=== PATIENT | female | born 1955 ===

== ENCOUNTER → 2024-03-30 08:00 | Outpatient (CLI) | payer OTHER ==
[~2024-03-30] VITALS: Ht 61 cm; Wt 5.0 kg
[~2024-03-30 08:00] MED LIST: DEXILANT30 MG; FUSION PLUS CA1 EACH; GLIPIZIDE XL2.5 MG PO; LIPITOR20 MG PO; LOSARTAN-HCTZ1 EAC1 PO
[2024-03-30 09:25] VITALS: BP 139/82
[2024-03-30 09:55] LABS: HEMATOCRIT 39.3 % (36.0-45.00); HEMOGLOBIN 12.8 g/dL (12.0-15.00); MEAN CELL VOLUME 83.4 fL (80.00-100.00); MEAN CORPUSCULAR HEMOGLOBIN 27.1 pg (27.00-32.0); MEAN CORPUSCULAR HGB CONC 32.5 g/dl (32.0-36.0); PLATELET COUNT 454 K/uL (150-450); RED BLOOD COUNT 4.72 M/uL (4.00-6.00); RED CELL DISTRIBUTION WIDTH 15.5 % (11.5-14.5)
[2024-03-30 10:17] LABS: INR 1.02; PARTIAL THROMBOPLASTIN TIME 30.3 SECONDS (22.0-34.0); PROTHROMBIN TIME 11.1 SECONDS (9.0-11.5)
[2024-03-30 10:22] LABS: PH,URINE 5.5 (5.0-8.0); URINE APPEARANCE Clear; URINE BILIRRUBIN Negative (NEGATIVE); URINE BLOOD Negative; URINE COLOR Yellow; URINE GLUCOSE Negative (NEGATIVE); URINE KETONE Negative (NEGATIVE); URINE LEUKOCYTE Negative; URINE NITRATE Negative; URINE PROTEIN Negative (NEGATIVE); URINE UROBILINOGEN 0.2 E.U./dl
[2024-03-30 10:27] LABS: URINE BACTERIA 2892.8 uL (0.0-1933); URINE EPITHELIAL CELLS 55.4 uL (0.0-38.8); URINE RBC 4.8 uL (0.0-20.8); URINE WBC 6.9 uL (0.0-23.2)
[2024-03-30 10:38] LABS: BILIRUBIN TOTAL 0.51 mg/dL (0.3-1.2); CALCIUM 9.7 mg/dL (8.5-10.1); CREATININE SERUM 0.77 mg/dL (0.55-1.02); GFR 74.55; POTASSIUM 3.87 mEq/L (3.5-5.1)
[2024-03-30 10:45] LABS: URINE CAST 0.61 uL (0.0-1.40)
== END | disposition home or self-care (01) ==
LOC: RAD 08:00 → SURH 04-12 07:00 → EDSTATUS 04-12 08:30 → SURH 04-12 08:30
PROVIDERS: ATTEND Surgery
DX: K44.9 Diaphragmatic hernia without obstruction or gangrene (principal); Z00.00 Encounter for general adult medical examination without abnormal findings

== ENCOUNTER 2024-06-23 08:15 | Inpatient (IN) | payer OTHER ==
[~2024-06-23] VITALS: Ht 160 cm; Wt 64.9 kg
[2024-06-23] MEDS ORDERED: TOPROL XL25 M1 PO (09:33)
[2024-06-23] MEDS ORDERED: METFORMIN HCL500 M3 PO (09:33)
[2024-06-23] MEDS ORDERED: PROTONIX40 MG PO (09:33)
[2024-06-23 09:39] LABS: PH,URINE 5.5 (5.0-8.0); URINE APPEARANCE Clear; URINE BILIRRUBIN Negative (NEGATIVE); URINE BLOOD Negative; URINE COLOR Yellow; URINE GLUCOSE Negative (NEGATIVE); URINE KETONE Negative (NEGATIVE); URINE LEUKOCYTE Negative; URINE NITRATE Negative; URINE PROTEIN Negative (NEGATIVE)
[2024-06-23 09:41] LABS: HEMATOCRIT 35.6 % (36.0-45.00); MEAN CELL VOLUME 80.6 fL (80.00-100.00); MEAN CORPUSCULAR HEMOGLOBIN 27.3 pg (27.00-32.0); MEAN CORPUSCULAR HGB CONC 33.8 g/dl (32.0-36.0); PLATELET COUNT 471 K/uL (150-450); RED BLOOD COUNT 4.41 M/uL (4.00-6.00); RED CELL DISTRIBUTION WIDTH 14.9 % (11.5-14.5)
[2024-06-23 09:50] LABS: URINE BACTERIA 1696.1 uL (0.0-1933); URINE EPITHELIAL CELLS 28.7 uL (0.0-38.8); URINE RBC 3.3 uL (0.0-20.8); URINE WBC 7.2 uL (0.0-23.2)
[2024-06-23 09:59] LABS: PARTIAL THROMBOPLASTIN TIME 30.9 SECONDS (22.0-34.0); PROTHROMBIN TIME 10.9 SECONDS (9.0-11.5)
[2024-06-23 10:10] LABS: ALBUMIN 3.9 gm/dL (3.4-5.0); BILIRUBIN TOTAL 0.62 mg/dL (0.3-1.2); CALCIUM 9.9 mg/dL (8.5-10.1); CREATININE SERUM 0.73 mg/dL (0.55-1.02); GFR 79.28; GLOBULINA 3.9 G/DL (2.4-3.5); POTASSIUM 4.23 mEq/L (3.5-5.1); TOTAL PROTEIN 7.8 gm/dL (6.4-8.2)
[2024-06-23 10:36] LABS: URINE CAST 0.29 uL (0.0-1.40)
[2024-06-28] MEDS ORDERED: BUPIVACAINE HCL/MPF 0.5% 30ML VIAL ONE (07:20)
[2024-06-28] MEDS ORDERED: CEFAZOLIN SODIUM 1,000 MG VIAL ONE ×3 (07:20→15:22)
[2024-06-28] MEDS ORDERED: SUGAMMADEX SODIUM 200 MG/2 ML VIAL IV ONE (11:27)
[2024-06-28] MEDS ORDERED: MORPHINE SULFATE 4 MG/ML VIAL IV ONE ×3 (12:10→15:30)
[2024-06-28] MEDS ORDERED: ACETAMINOPHEN 500 MG GEL..CAP PO SCH (12:29)
[2024-06-28] MEDS ORDERED: MORPHINE SULFATE 4 MG/ML CARTRIDGE IV PRN (12:30)
[2024-06-28] MEDS ORDERED: CEFAZOLIN SODIUM 1,000 MG VIAL IV SCH (13:00)
[2024-06-28] MEDS ORDERED: DEXTROSE 50 % IN WATER 0.5 G/ML DISP.SYRIN IV PRN (13:15)
[2024-06-28] MEDS ORDERED: INSULIN LISPRO 1,000 UNIT/10 ML UNITS SUBCUTANEO PRN (13:15)
[2024-06-28] MEDS ORDERED: INSULIN LISPRO 1,000 UNIT/10 ML UNITS SUBCUTANEO ONE (13:23)
[2024-06-28] MEDS ORDERED: ENALAPRILAT DIHYDRATE 1.25 MG/ML VIAL IV ONE ×4 (16:00→16:30)
[2024-06-28] MEDS ORDERED: ONDANSETRON HCL 2 MG/ML VIAL ONE (16:17)
[2024-06-28] MEDS ORDERED: hydrALAZINE HCL 20 MG VIAL ONE (16:41)
[2024-06-28] MEDS ORDERED: METOCLOPRAMIDE HCL 5 MG/ML VIAL ONE (17:08)
[2024-06-28] MEDS ORDERED: DEXAMETHASONE SODIUM PHOSP/PF 10 MG/ML VIAL ONE (17:08)
[2024-06-29 00:48] VITALS: BP 111/64; O2SAT 96
[2024-06-29 08:00] VITALS: BP 103/67; O2SAT 95
[2024-06-29] MEDS ORDERED: KETOROLAC TROMETHAMINE 30 MG VIAL IV NR (13:30)
[2024-06-29 19:18] VITALS: BP 119/73; O2SAT 92
[2024-06-30 01:09] VITALS: BP 118/72; O2SAT 98
[2024-06-30 08:00] VITALS: BP 115/68; O2SAT 98
== END 2024-06-30 09:26 | disposition home or self-care (01) | DRG 328 ==
LOC: SURH 06-28 05:28 → O/R 06-28 05:28 → SURH 06-28 07:00
PROVIDERS: ADMIT Surgery; ATTEND Surgery
PROC: 8E0W4CZ Robotic Assisted Procedure of Trunk Region, Percutaneous Endoscopic Approach (ICD-10-PCS; 2024-06-28)
PROC: 0BQT4ZZ Repair Diaphragm, Percutaneous Endoscopic Approach (ICD-10-PCS; principal; 2024-06-28 07:00)
DX: K44.9 Diaphragmatic hernia without obstruction or gangrene (principal); K44.0 Diaphragmatic hernia with obstruction, without gangrene
CPT/HCPCS: 43281; S2900